=== PATIENT | female | born 1940 | race Caucasian/White ===

== ENCOUNTER → 2019-01-02 15:13 | Outpatient (CLI) | payer OTHER, SELFPAY ==
--- NOTE | 2019-01-02 | DI.MG.S_ITS ---
BILATERAL DIGITAL SCREENING MAMMOGRAM 3D/2D WITH CAD: 01/02/2019 CLINICAL: Routine screening. Comparison is made to exams dated: 12/03/2014 mammogram, 11/13/2013 mammogram, and 06/20/2008 mammogram - [facility]. The tissue of both breasts is heterogeneously dense. This may lower the sensitivity of mammography. Current study was also evaluated with a Computer Aided Detection (CAD) system. There is an oval equal density focal asymmetry with an indistinct and circumscribed margin in the left breast middle depth superior region seen on the mediolateral oblique view only. No other significant masses, calcifications, or other findings are seen in either breast. IMPRESSION: INCOMPLETE: NEEDS ADDITIONAL IMAGING EVALUATION The oval equal density focal asymmetry in the left breast is indeterminate. Mediolateral and spot compression views as well as additional views with possible ultrasound are recommended. This exam was interpreted at Station ID: [id number]. NOTE: For mammograms, a report in lay terms will be sent to the patient. Approximately 15% of breast malignancies will not be visualized mammographically. In the management of a palpable breast mass, a negative mammogram must not discourage biopsy of a clinically suspicious lesion. Electronically Signed By: Matt rogers/agapito:01/03/2019 10:39:07 letter sent: Additional Imaging Needed ACR BI-RADS Category 0: Incomplete 3340F
== END ==
PROVIDERS: Visit Provider Family Medicine
DX: Z12.31 Encounter for screening mammogram for malignant neoplasm of breast (principal)
CPT/HCPCS: 77063; 77067

== ENCOUNTER → 2019-02-12 10:22 | Outpatient (CLI) | payer OTHER, SELFPAY ==
--- NOTE | 2019-02-12 | DI.MG.S_ITS ---
UNILATERAL LEFT DIGITAL DIAGNOSTIC MAMMOGRAM 3D/2D WITH ADDITIONAL VIEWS: 02/12/2019 CLINICAL: Additional evaluation requested from prior study. Comparison is made to exams dated: 01/02/2019 mammogram, 12/03/2014 mammogram, and 11/13/2013 mammogram - [facility]. The tissue of left breast is heterogeneously dense. This may lower the sensitivity of mammography. The oval equal density focal asymmetry with an indistinct and circumscribed margin in the left breast middle depth superior region seen on the mediolateral oblique view only is not seen in additional views. No other significant masses or calcifications are seen in the breast. IMPRESSION: The focal asymmetry in the left breast seen on the screening mammogram likely respresents superimposed fibroglandular tissue and is benign. There is no mammographic evidence of malignancy. A 1 year screening mammogram is recommended. This exam was interpreted at Station ID: [id number]. NOTE: For mammograms, a report in lay terms will be sent to the patient. Approximately 15% of breast malignancies will not be visualized mammographically. In the management of a palpable breast mass, a negative mammogram must not discourage biopsy of a clinically suspicious lesion. Electronically Signed By: Ranjana jose/:02/12/2019 11:02:35 letter sent: Normal Exam ACR BI-RADS Category 2: Benign Finding(s) 3342F
== END ==
PROVIDERS: Visit Provider Family Medicine
DX: R92.8 Other abnormal and inconclusive findings on diagnostic imaging of breast (principal); N64.89 Other specified disorders of breast
CPT/HCPCS: 77065; G0279

== ENCOUNTER 2019-09-20 08:18 | Day surgery (SDC) | payer OTHER, SELFPAY ==
[2019-09-20 09:05] VITALS: BP 184/105; PULSE 80; RESP 16; TEMP 36.6; O2SAT 98; BMI 19.3
[2019-09-20] MEDS: PROPARACAINE 0.5% OPHTH SOL 2 DROPS EYE-OP (09:10)
[2019-09-20] MEDS: CATARACT EYE COMPOUND (10 DROPS/SYRINGE) 3 DROPS EYE-OP (09:15)
--- NOTE | 2019-09-20 09:57 | PM.PREOP ---
Pre-operative Note Interval Note History & Physical reviewed/Exam performed by Physician: Yes Changes to H&P: No
[2019-09-20] MEDS: BALANCED SALT IRRIG SOLN NO.2 15 ML 5 ML IRR (10:16)
[2019-09-20] MEDS: CHONDROIDTIN/SOD HYALURONATE 1.05 ML SYRINGE INTRAOCULA (10:17)
[2019-09-20] MEDS: LIDOCAINE 2% INJ SDV 2 ML INJ (10:17)
[2019-09-20] MEDS: MOXIFLOXACIN INJ 5 MG/ML VIAL EYE-OP (10:17)
[2019-09-20] MEDS: BALANCED SALT IRRIG SOLN NO.2 500 ML, EPINEPHrine 1 MG IRR (10:18)
[2019-09-20] MEDS: TETRACAINE 0.5% OPHTH DROPS 4 ML 2 DROPS EYE-OP (10:18)
[2019-09-20] MEDS: PHENYLEPHRINE/LIDOCAINE VIAL (OR) 0.2 ML EYE-OP (10:18)
--- NOTE | 2019-09-20 10:34 | PM.OP.1 ---
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 The correct patient, surgical site and lens were confirmed. 0.5 % tetracaine drops were placed in the right eye. The patient was prepped and draped in the typical sterile manner. A lid speculum was placed in the eye. 2% lidocaine was placed on the eye. A paracentesis port was created with a side-port blade. 0.1 mL of 1% preservative free lidocaine with phenylephrine was injected into the anterior chamber. Viscoelastic was injected into the anterior chamber. A 2.6mm keratome was used to create a clear corneal temporal incision. Cystotome and Utrata forceps were used to create a continuous curvilinear capsulorrhexis. Balanced salt solution was used to hydrodissect the nucleus. Phacoemulsification was used to remove the lens. The capsular bag was inflated with viscoelastic. A Gonzalez ZCBOO +19.5D lens was inserted into the capsule. Viscoelastic was removed and the wound hydrated. The wound was found to be leak free and the eye was assessed to be at normal physiologic pressure. 0.1mL Vigamox was injected into the anterior chamber. The lid speculum was removed and the patient left the operating room in excellent condition. Complications: none Post-operative Condition: stable Disposition: same day surgery
[2019-09-20 10:38] VITALS: BP 168/106; PULSE 86; RESP 20; TEMP 36.4; O2SAT 98
== END 2019-09-20 10:55 | disposition home or self-care (01) ==
LOC: OR 08:20
PROVIDERS: Visit Provider Ophthalmology
PROC: (CPT 66984; principal; 2019-09-20 09:30)
DX: H25.11 Age-related nuclear cataract, right eye (principal)
CPT/HCPCS: 66984; J0171; J2250

== ENCOUNTER 2019-10-04 12:26 | Day surgery (SDC) | payer OTHER, SELFPAY ==
[2019-10-04 12:56] VITALS: BP 195/114; PULSE 90; RESP 16; TEMP 36.9; O2SAT 99; BMI 19.4
[2019-10-04] MEDS: PROPARACAINE 0.5% OPHTH SOL 2 DROPS EYE-OP (13:00)
[2019-10-04] MEDS: CATARACT EYE COMPOUND (10 DROPS/SYRINGE) 3 DROPS EYE-OP (13:04)
--- NOTE | 2019-10-04 13:52 | PM.PREOP ---
Pre-operative Note Interval Note History & Physical reviewed/Exam performed by Physician: Yes Changes to H&P: No
[2019-10-04] MEDS: CHONDROIDTIN/SOD HYALURONATE 1.05 ML SYRINGE INTRAOCULA (14:09)
[2019-10-04] MEDS: PHENYLEPHRINE/LIDOCAINE VIAL (OR) 0.2 ML EYE-OP (14:09)
[2019-10-04] MEDS: LIDOCAINE 2% INJ SDV 2 ML INJ (14:10)
[2019-10-04] MEDS: BALANCED SALT IRRIG SOLN NO.2 500 ML, EPINEPHrine 1 MG IRR (14:10)
[2019-10-04] MEDS: MOXIFLOXACIN INJ 5 MG/ML VIAL EYE-OP (14:10)
[2019-10-04] MEDS: BALANCED SALT IRRIG SOLN NO.2 15 ML 5 ML IRR (14:11)
[2019-10-04] MEDS: TETRACAINE 0.5% OPHTH DROPS 4 ML 2 DROPS EYE-OP (14:11)
--- NOTE | 2019-10-04 14:30 | P.OP_ITS ---
Procedure & Clinicians Procedure: Cataract extraction with intraocular lens implant, left. Same procedure as scheduled: Yes Indications: Visually significant age related nuclear sclerosis, left Surgeon: Sujit Nicole Click Yes if Unassisted: Yes Anesthesia Type: MAC +/- Operative Notes Procedure in detail: The patient was brought to the operating suite. The correct patient, surgical site and lens were confirmed. 0.5 % tetracaine drops were placed in the left eye. The patient was prepped and draped in the typical flavio rile manner. A lid speculum was placed in the eye. 2% lidocaine was placed on the eye. A paracentesis port was created with a side-port blade. 0.1 mL of 1% preservative free lidocaine with phenylephrine was injected into the anterior chamber. Viscoelastic was injected into the anterior chamber. A 2.6mm keratome was used to create a clear corneal temporal incision. Cystotome and Utrata forceps were used to create a continuous curvilinear capsulorrhexis. Balanced salt solution was used to hydrodissect the nucleus. Phacoemulsification was used to remove the lens. The capsular bag was inflated with viscoelastic. A Gonzalez ZCBOO +19.5D lens was inserted into the capsule. Viscoelastic was removed and the wound hydrated. The wound was found to be leak free and the eye was assessed to be at normal physiologic pressure. 0.1mL Vigamox was injected into the anterior chamber. The lid speculum was removed and the patient left the operating room in excellent condition. Complications: none Post-operative Condition: stable Disposition: same day surgery
[2019-10-04 14:34] VITALS: BP 185/102; PULSE 85; RESP 16; TEMP 36.6; O2SAT 100
== END 2019-10-04 14:49 | disposition home or self-care (01) ==
LOC: OR 12:29
PROVIDERS: PCP Family Medicine; Visit Provider Ophthalmology
PROC: (CPT 66984; principal; 2019-10-04 14:00)
DX: H25.12 Age-related nuclear cataract, left eye (principal)
CPT/HCPCS: 66984; J0171; J2250

== ENCOUNTER → 2020-07-01 10:55 | Outpatient (CLI) | payer OTHER, SELFPAY ==
--- NOTE | 2020-07-01 11:13 | DI.MG.S_ITS ---
Patient Name: ZAINAB RODRIGUEZ date: 1940 Sex: F Attending Physician: Josh Indications: Date: 07/01/2020 11:07 At the request of: SAMEER MICHEL Procedure: MM screening mammo BI BILATERAL DIGITAL SCREENING MAMMOGRAM 3D/2D WITH CAD: 07/01/2020 CLINICAL: Routine screening. Comparison is made to exams dated: 02/12/2019 mammogram, 01/02/2019 mammogram, 12/03/2014 mammogram, and 11/13/2013 mammogram - [facility]. The tissue of both breasts is heterogeneously dense. This may lower the sensitivity of mammography. Current study was also evaluated with a Computer Aided Detection (CAD) system. There are benign calcifications in both breasts. No significant masses, calcifications, or other findings are seen in either breast. There has been no significant interval change. IMPRESSION: BENIGN There is no mammographic evidence of malignancy. A 1 year screening mammogram is recommended. This exam was interpreted at Station ID: [id number]. NOTE: For mammograms, a report in lay terms will be sent to the patient. Approximately 15% of breast malignancies will not be visualized mammographically. In the management of a palpable breast mass, a negative mammogram must not discourage biopsy of a clinically suspicious lesion. Electronically Signed By: Ranjana jose/agapito:07/01/2020 11:59:29 letter sent: Normal Exam ACR BI-RADS Category 2: Benign Finding(s) 3342F
== END ==
PROVIDERS: PCP Family Medicine; Referring Provider Family Medicine; Visit Provider Family Medicine
DX: Z12.31 Encounter for screening mammogram for malignant neoplasm of breast (principal)
CPT/HCPCS: 77063; 77067

== ENCOUNTER → 2021-02-25 13:42 | Outpatient (CLI) | payer OTHER, SELFPAY ==
[2021-02-25 15:09] LABS: COVID19 -Nasal RAPID Negative (Negative)
== END ==
PROVIDERS: PCP Family Medicine; Visit Provider Student in an Organized Health Care Education/Training Program
DX: Z01.812 Encounter for preprocedural laboratory examination (principal); Z20.822 Contact with and (suspected) exposure to COVID-19
CPT/HCPCS: 87635; C9803

== ENCOUNTER 2021-02-27 11:50 | Day surgery (SDC) | payer OTHER, SELFPAY ==
--- NOTE | 2021-02-27 11:27 | PM.HP.1 ---
History of Present Illness History of Present Illness Date Patient Seen: 02/27/21 Chief complaint: SDC Narrative: 80 Years Old Female seen today for consideration of a diagnostic colonoscopy. She has been having rectal bleeding, chronic history of hemorrhoids and constipation. Otherwise, denies lower GI symptoms suggesting disease such as change in bowel habits, abdominal pain or anemia. She has never had a colonoscopy. There's been no family history of colon cancer or colon polyps. Overall health issues have been stable, including no major cardiac events for at least 6 weeks. Past Medical History: Dermatology: Eczema and recurrent zoster 01/04 and 08/07 Musculoskeletal:Chronic Pain: affecting the low back GYNECOLOGICAL HISTORY:Menopause at age 52. Elevated TSH Whitecoat syndrome Past Surgical History: Tonsillectomy/Adenoidectomy Tubal Ligation Family History: Positive for Coronary Artery Disease ( mother -- w/CABG ). 80's, Positive for Gastric cancer: Mat. GF. Positive for Rheumatoid Arthritis ( father ). valve replacement for rheumatic disease. 84 brother [place] 62. 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 Patient History Family & Social History Social History: household members none Meds Home Medications and Allergies Home Medications Medication Instructions Recorded Confirmed Type aspirin 81 mg PO DAILY 10/04/19 10/04/19 History coenzyme Q10 [CoQ-10] 30 mg PO DAILY 10/04/19 10/04/19 History naproxen sodium [Aleve] 220 mg PO BID PRN 10/04/19 10/04/19 History polyethylene glycol 3350 [Miralax] 17 g PO DAILY PRN 10/04/19 10/04/19 History Allergies Allergy/AdvReac Type Severity Reaction Status Date / Time Penicillins Allergy Verified 10/04/19 12:52 codeine AdvReac Intermediate Verified 10/04/19 12:52 Review of Systems Review of Systems ROS: Yes All systems reviewed with the patient and are negative except as otherwise documented Exam Narrative Exam Narrative: GENERAL: Alert and oriented, appearing stated age and in no acute distress. HEENT: Head normocephalic/atraumatic. Pupils equal, round, and reactive to light and accomodation. Extraocular muscles intact. Tympanic membranes clear. Nasal mucosa moist, septum midline. Oral mucosa moist, no lesions. Neck soft and supple, no lymphadenopathy. LUNGS: Clear to ausculation bilaterally, no wheezes, rhonchi or rales. CV: Normal S1 and S2 with regular rate and rhythm, no audible murmurs, rubs or gallops. ABDOMEN: Soft, non-tender, non-distended, no organomegaly. Positive bowel sounds. EXTREMITIES: No clubbing, cyanosis, or edema. NEURO: Cranial nerves II through XII grossly intact, no focal deficits. PSYCH: Alert and oriented x 3. SKIN: No concerning lesions. Assessment & Plan Assessment & Plan narrative: 1. Hematochezia 2. Hemorrhoids 3. Constipation 4. Screening for colon cancer Plan for colonoscopy. The nature and character of the procedure as well as anticipated results were discussed. The possibility of not completing the procedure was also discussed. Possible complications including aspiration pneumonia, bleeding, perforation and reaction to medications either for sedation or preparation and missed lesions were discussed. Questions were answered and proceeding to the colonoscopy was elected. Informed consent signed. I sincerely appreciate the referral allowing me to participate in this patient's care. Please contact me with any questions or concerns.
--- NOTE | 2021-02-27 11:29 | PM.OP.ENDO ---
Operative Date/Time/Diagnoses Date of procedure: 02/27/21 Procedure Notes Procedure in detail: ENDOSCOPIST: Autumn Grant MD Sedation RN: Sedation start time: Sedation end time: PROCEDURE: Colonoscopy [] INDICATIONS: 1. Hematochezia 2. Hemorrhoids 3. Constipation 4. Colon cancer screening MEDICATION: Levsin 0.125 mg sublingual, incremental doses of Versed and fentanyl until appropriate level sedation achieved. ASA CLASS: 2 CECAL WITHDRAWAL TIME: [] COMPLICATIONS: None. EXTENT OF PROCEDURE: Cecum. QUALITY OF PREP: []Good with portions of liquid stool. PROCEDURE: Prior to insertion of the colonoscope, a digital rectal examination was accomplished with circumferential palpation of the distal rectal mucosa without significant findings being noted.[] The high-definition [] colonoscope was passed into the rectum in the usual fashion and advanced over to the cecum without difficulty. The ileocecal valve, appendiceal stoma, and medial wall all could be inspected and []no abnormalities were seen. ASCENDING COLON: J maneuver was produced in the cecum and the proximal folds of the ascending colon were carefully inspected to the hepatic flexure and []. As the colonoscope was withdrawn, care was taken to expose and inspect the haustral folds and no abnormalities were seen. [] HEPATIC FLEXURE: Normal no polyps, diverticula or other abnormalities. [] TRANSVERSE COLON: Normal no polyps, diverticula or other abnormalities. [] DESCENDING COLON: Normal no polyps, diverticula or other abnormalities. [] SIGMOID COLON: Normal no polyps, diverticula or other abnormalities. [] RECTUM: Normal. J maneuver was produced. There was no significant perianal disease. The J maneuver was broken. The remainder of the rectum was inspected and there was [] no external hemorrhoid disease. The scope was withdrawn. IMPRESSION: 1. [] PLAN: 1. [] The possibility of a missed lesion including a malignancy has been discussed with the patient previously. Potential alarm symptoms have been discussed and should be reported immediately.
== END 2021-02-27 11:55 | disposition home or self-care (01) ==
LOC: ENDO 11:52
PROVIDERS: PCP Family Medicine; Referring Provider Student in an Organized Health Care Education/Training Program; Visit Provider Student in an Organized Health Care Education/Training Program
DX: Z53.09 Procedure and treatment not carried out because of other contraindication (principal)

== ENCOUNTER → 2021-05-06 11:08 | Outpatient (CLI) | payer OTHER, SELFPAY ==
[2021-05-06 12:50] LABS: COVID19 -Nasal RAPID Negative (Negative)
== END ==
PROVIDERS: PCP Family Medicine; Visit Provider Physician Assistant
DX: Z01.812 Encounter for preprocedural laboratory examination (principal); Z20.822 Contact with and (suspected) exposure to COVID-19
CPT/HCPCS: 87635; C9803

== ENCOUNTER 2021-05-08 12:00 | Day surgery (SDC) | payer OTHER, SELFPAY ==
--- NOTE | 2021-05-08 | PATH_ITS ---
[facility] [place] Accession Number: [id number] . 01 Material submitted: . cecum - CECAL POLYP 1MM . 02 Diagnosis: Cecal Polyp, 1 mm, Biopsy: Tubular adenoma. [facility] 05/12/2021 1508 Local . 02 Electronically signed: . Giles Bernard MD, PhD, Pathologist NPI- [id number] . 01 Gross description: . CECAL POLYP 1MM: Received in formalin is 1 fragment(s) of rao, soft tissue measuring 0.6 x 0.3 x 0.2 cm submitted entirely in 1 cassette(s) /SOCO 05/09/2021 0551 Local . 02 Pathologist provided ICD-10: D12.0 . 02 CPT . 526397 Performed at: [address] [facility] [address] [place] [address], [place], [place] [id number] MD Matt Ozuna MD Phone: [phone] Performed at: 02 [facility] [address] [place], [place] [id number] MD Eve Kumari MD Phone: [phone]
--- NOTE | 2021-05-08 11:58 | P.HP_ITS ---
History of Present Illness History of Present Illness Date Patient Seen: 05/08/21 Chief complaint: [facility] Narrative: 79 Years Old Female seen today for consideration of a diagnostic colonoscopy. She has been having rectal bleeding, chronic history of hemorrhoids and constipation. Otherwise, denies lower GI symptoms suggesting disease such as change in bowel habits, abdominal pain or anemia. She has never had a colonoscopy. There's been no family history of colon cancer or colon polyps. Overall health issues have been stable, including no major cardiac events for at least 6 weeks. Past Medical History: Dermatology: Eczema and recurrent zoster 01/04 and 08/07 Musculoskeletal:Chronic Pain: affecting the low back GYNECOLOGICAL HISTORY:Menopause at age 52. Elevated TSH Whitecoat syndrome Past Surgical History: Tonsillectomy/Adenoidectomy Tubal Ligation Family History: Positive for Coronary Artery Disease ( mother -- w/CABG ). 80's, Positive for Gastric cancer: Mat. GF. Positive for Rheumatoid Arthritis ( father ). valve replacement for rheumatic disease. 84 brother [place] 62. 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 Patient History Family & Social History Social History: household members none Meds Home Medications and Allergies Home Medications Medication Instructions Recorded Confirmed Type coenzyme Q10 30 mg capsule (CoQ-10) 30 mg PO DAILY 10/04/19 05/08/21 History Allergies Allergy/AdvReac Type Severity Reaction Status Date / Time Penicillins Allergy Verified 05/08/21 12:43 codeine AdvReac Intermediate Verified 05/08/21 12:43 Review of Systems Review of Systems Narrative: Ten point review systems completed and found to be noncontributory except for items mentioned in HPI. Exam Narrative Exam Narrative: GENERAL: Alert and oriented, appearing stated age and in no acute distress. HEENT: Head normocephalic/atraumatic. LUNGS: Clear to ausculation bilaterally, no wheezes, rhonchi or rales. CV: Normal S1 and S2 with regular rate and rhythm, no audible murmurs, rubs or gallops. ABDOMEN: Soft, non-tender, non-distended, no organomegaly. Positive bowel sounds. EXTREMITIES: No clubbing, cyanosis, or edema. NEURO: Cranial nerves II through XII grossly intact, no focal deficits. PSYCH: Alert and oriented x 3. SKIN: No concerning lesions. Assessment & Plan Assessment & Plan narrative: 1. Hematochezia 2. Hemorrhoids 3. Constipation 4. Screening for colon cancer Plan for colonoscopy. The nature and character of the procedure as well as anticipated results were discussed. The possibility of not completing the procedure was also discussed. Possible complications including aspiration pneumonia, bleeding, perforation and reaction to medications either for sedation or preparation and missed lesions were discussed. Questions were answered and proceeding to the colonoscopy was elected. Informed consent signed. I sincerely appreciate the referral allowing me to participate in this patient's care. Please contact me with any questions or concerns.
--- NOTE | 2021-05-08 12:01 | PM.OP.ENDO ---
Operative Date/Time/Diagnoses Date of procedure: 05/08/21 Procedure Notes SCOAP/Timeout: 1:09 p.m. Procedure in detail: ENDOSCOPIST: Autumn Grant MD Sedation RN: Malcolm Barry RN Sedation start time: 1:10 p.m. Sedation end time: 3:31 p.m. PROCEDURE: Colonoscopy with biopsy, cold INDICATIONS: 1. Hematochezia 2. Hemorrhoids 3. Constipation 4. Screening for colon cancer MEDICATION: Levsin 0.125 mg sublingual, incremental doses of Versed and fentanyl until appropriate level sedation achieved. ASA CLASS: 2 CECAL WITHDRAWAL TIME: 7 minutes COMPLICATIONS: None. EXTENT OF PROCEDURE: Cecum. QUALITY OF PREP: Good with portions of liquid stool. PROCEDURE: Prior to insertion of the colonoscope, a digital rectal examination was accomplished with circumferential palpation of the distal rectal mucosa without significant findings being noted. The high-definition pediatric colonoscope was passed into the rectum in the usual fashion and advanced over to the cecum without difficulty. The ileocecal valve, appendiceal stoma, and medial wall all could be inspected and a 1 mm polyp was seen and removed with cold biopsy forceps. ASCENDING COLON: As the colonoscope was withdrawn, melanosis coli was noted throughout withdrawal. Care was taken to expose and inspect the haustral folds and no abnormalities were seen. HEPATIC FLEXURE: Normal, no polyps, diverticula or other abnormalities. TRANSVERSE COLON: Normal, no polyps, diverticula or other abnormalities. DESCENDING COLON: Normal, no polyps, diverticula or other abnormalities. SIGMOID COLON: Normal, no polyps, diverticula or other abnormalities. RECTUM: Normal. J maneuver was produced. There was no significant perianal disease. The J maneuver was broken. The remainder of the rectum was inspected and there was minor external hemorrhoid disease. The scope was withdrawn. IMPRESSION: 1. Cecal polyp x1, 1 mm, removed with cold biopsy forceps 2. External hemorrhoids, minor PLAN: 1. Follow-up in clinic status post pathology results. The possibility of a missed lesion including a malignancy has been discussed with the patient previously. Potential alarm symptoms have been discussed and should be reported immediately.
[2021-05-08] MEDS: LACTATED RINGERS 1,000 ML 200 ML IV (12:42)
[2021-05-08 12:45] VITALS: BP 176/96; PULSE 97; RESP 16; TEMP 36.9; O2SAT 100; BMI 19.3
[2021-05-08] MEDS: HYOSCYAMINE 0.125 MG TABLET PO ×2 (12:54)
[2021-05-08] MEDS: MIDAZOLAM 5 MG/5 ML VIAL IV (13:36)
[2021-05-08] MEDS: fentaNYL 250 MCG/5 ML INJ IV (13:37)
[2021-05-08 13:38] VITALS: BP 101/64; PULSE 72; RESP 12; TEMP 36.3; O2SAT 98
[2021-05-08 13:43] VITALS: BP 97/59; PULSE 81; RESP 16; O2SAT 98
[2021-05-08 13:48] VITALS: BP 121/79; PULSE 81; O2SAT 12
[2021-05-08 13:52] VITALS: BP 122/79; PULSE 97; RESP 18; TEMP 37; O2SAT 97
[2021-05-08 13:53] VITALS: BP 125/88; PULSE 72; RESP 14; TEMP 37; O2SAT 96
== END 2021-05-08 14:12 | disposition home or self-care (01) ==
PROVIDERS: PCP Family Medicine; Referring Provider Student in an Organized Health Care Education/Training Program; Visit Provider Student in an Organized Health Care Education/Training Program
PROC: 0DJD8ZZ Inspection of Lower Intestinal Tract, Via Natural or Artificial Opening Endoscopic (ICD-10-PCS; CPT 45378; principal; 2021-05-08 13:00)
DX: K64.8 Other hemorrhoids (principal); K59.00 Constipation, unspecified; K64.4 Residual hemorrhoidal skin tags; D12.0 Benign neoplasm of cecum
CPT/HCPCS: 45380; J2250; J3010

== ENCOUNTER → 2021-07-21 11:39 | Outpatient (CLI) | payer OTHER, SELFPAY ==
--- NOTE | 2021-07-21 | DI.MG.S_ITS ---
BILATERAL DIGITAL SCREENING MAMMOGRAM 3D/2D WITH CAD: 07/21/2021 CLINICAL: Routine screening. Comparison is made to exams dated: 07/01/2020 mammogram, 02/12/2019 mammogram, 01/02/2019 mammogram, and 12/03/2014 mammogram - [facility]. The tissue of both breasts is heterogeneously dense. This may lower the sensitivity of mammography. Current study was also evaluated with a Computer Aided Detection (CAD) system. There are benign calcifications in both breasts. No significant masses, calcifications, or other findings are seen in either breast. There has been no significant interval change. IMPRESSION: BENIGN There is no mammographic evidence of malignancy. A 1 year screening mammogram is recommended. This exam was interpreted at Station ID: [id number]. NOTE: For mammograms, a report in lay terms will be sent to the patient. Approximately 15% of breast malignancies will not be visualized mammographically. In the management of a palpable breast mass, a negative mammogram must not discourage biopsy of a clinically suspicious lesion. Electronically Signed By: Sebas Thompson M.D., jr/agapito:07/21/2021 12:11:25 letter sent: Normal Exam ACR BI-RADS Category 2: Benign Finding(s) 3342F
== END ==
PROVIDERS: PCP Family Medicine; Referring Provider Family Medicine; Visit Provider Family Medicine
DX: Z12.31 Encounter for screening mammogram for malignant neoplasm of breast (principal)
CPT/HCPCS: 77063; 77067

== ENCOUNTER → 2022-07-26 09:55 | Outpatient (CLI) | payer OTHER, SELFPAY ==
--- NOTE | 2022-07-26 | DI.ECHO.S_ITS ---
[place] [facility] +---------+ : : [address] : [address] : : : : [phone] : : : : Phone: [phone]+ Echocardiogram Report + + :Name: ZAINAB RODRIGUEZ Study Date: 07/26/2022 Height: 66 in : :[facility] ReadingLocation: Weight: 120 lb : : Gender: Female BSA: 1.6 m2 : :: 1940 Age: 81 yrs BP: 183/104 mmHg: :Reason For Study: Murmur : :Ordering Physician: MARILU, : :SAMEER Performed By: Levy Corona : :Referring: SAMEER MICHEL : + + Interpretation Summary The ejection fraction is estimated to be 55-60%. There is mild mitral regurgitation. There is mild to moderate tricuspid regurgitation. The right ventricular systolic pressure is estimated to be at least 29 mmHg based on an estimated right atrial pressure of 3 mm Hg. Procedure: A two-dimensional transthoracic echocardiogram with color flow and Doppler was performed. The study quality was technically adequate. There is no prior echocardiogram noted for this patient. Left Ventricle: The left ventricle is normal in size and wall thickness. Left ventricular systolic function is normal. The ejection fraction is estimated to be 55-60%. There are no focal wall motion abnormalities. Diastolic parameters suggest probable normal left ventricular diastolic function and normal filling pressures. Right Ventricle: The right ventricle is normal in size and function. Atria: Both atria are normal in size. The interatrial septum grossly appears intact with no obvious evidence for an atrial septal defect. Mitral Valve: There is mild mitral annular calcification. There is mild mitral regurgitation. Aortic Valve: The aortic valve is moderately calcified. There is no hemodynamically significant valvular aortic stenosis. No aortic regurgitation is present. Tricuspid Valve: The tricuspid valve is normal in structure and function. There is mild to moderate tricuspid regurgitation. The right ventricular systolic pressure is estimated to be at least 29 mmHg based on an estimated right atrial pressure of 3 mm Hg. Pulmonic Valve: The pulmonic valve is not well seen, but is grossly normal. There is no pulmonic valvular regurgitation. Great Vessels: The aortic root is normal size. The dimensions of the ascending aorta are normal. The IVC is of normal diameter and collapses greater than 50% with a sniff. This suggests a low right atrial pressure of 3 mm Hg. Pericardium/ Pleura There is no pericardial effusion. There is no pleural effusion. MMode/2D Measurements & Calculations LVIDd: 4.4 cm LVOT diam: 2.4 cm LVIDs: 2.9 cm Ao root diam: 3.1 cm FS: 34.1 % asc Aorta Diam: 3.4 cm IVSd: 0.80 cm LVPWd: 0.90 cm LV garcía. diameter/BSA (cm/m^2): 2.7 LV sys. diameter/BSA (cm/m^2): 1.8 LA dimension: 3.0 cm RA long axis: 5.3 cm LA A2 area: 14.7 cm2 LA A4 area: 20.2 cm2 LA length (vol): 4.9 cm LA vol: 51.5 ml LA vol index: 32.0 ml/m2 TAPSE_phl: 3.2 cm SOCO (plan): 1.5 cm2 Doppler Measurements & Calculations Ao V2 max: 175.0 cm/sec LVOT Max [place]: 65.3 cm/sec Ao V2 mean: 129.0 cm/sec LV V1 max P.7 mmHg Ao max P.0 mmHg LV V1 VTI: 14.7 cm Ao mean P.0 mmHg SOCO(I,D): 1.7 cm2 Ao V2 VTI: 37.4 cm SOCO(V,D): 1.6 cm2 sev ratio: 0.39 SOCO indexed to BSA (cm^2/m^2): 1.1 MV E max zelalem: 82.3 cm/sec TR max zelalem: 257.0 cm/sec MV A max z[place]: 69.4 cm/sec TR max P.4 mmHg MV E/A: 1.2 Med Peak E' Zel[place]: 10.3 cm/sec E/E' med: 8.0 Lat Peak E' [place]: 11.4 cm/sec E/E' lat: 7.2 E/e' average: 7.6 MV dec time: 0.18 sec SV(LVOT): 64.4 ml AV VR_phl: 0.37 SOCO(VTI)/BSA_phl: 0.84 MV P1/2t-pr_phl: 53.0 msec Reading Physician:03:49 PM
== END ==
PROVIDERS: PCP Family Medicine; Referring Provider Family Medicine; Visit Provider Family Medicine
DX: I08.1 Rheumatic disorders of both mitral and tricuspid valves (principal); R01.1 Cardiac murmur, unspecified
CPT/HCPCS: 93306

== ENCOUNTER → 2022-10-11 10:57 | Outpatient (CLI) | payer OTHER, SELFPAY ==
--- NOTE | 2022-10-11 | DI.MG.S_ITS ---
BILATERAL DIGITAL SCREENING MAMMOGRAM 3D/2D WITH CAD: 10/11/2022 CLINICAL: Routine screening. Comparison is made to exams dated: 07/21/2021 mammogram, 07/01/2020 mammogram, 01/02/2019 mammogram, and 12/03/2014 mammogram - [facility]. Both breasts are heterogeneously dense, which may obscure small masses (category c / 51-75% glandular tissue). Current study was also evaluated with a Computer Aided Detection (CAD) system. There are benign calcifications in both breasts. No significant masses, calcifications, or other findings are seen in either breast. There has been no significant interval change. IMPRESSION: BENIGN There is no mammographic evidence of malignancy. A 1 year screening mammogram is recommended. Based on the Tyrer Cuzick model (a risk assessment model) the patient's lifetime risk is 2.6% and her 10 year risk is 0.0%. According to the ACR, ACS, and NCCN guidelines, an annual breast MRI exam along with mammogram is recommended if the patient's lifetime risk is 20% or greater. This exam was interpreted at Station ID: [id number]. NOTE: For mammograms, a report in lay terms will be sent to the patient. Approximately 15% of breast malignancies will not be visualized mammographically. In the management of a palpable breast mass, a negative mammogram must not discourage biopsy of a clinically suspicious lesion. Electronically Signed By: Kp shane/agapito:10/11/2022 12:27:13 letter sent: Normal Exam ACR BI-RADS Category 2: Benign Finding(s) 3342F
== END ==
PROVIDERS: PCP Family Medicine; Referring Provider Family Medicine; Visit Provider Family Medicine
DX: Z12.31 Encounter for screening mammogram for malignant neoplasm of breast (principal)
CPT/HCPCS: 77063; 77067

== ENCOUNTER → 2022-11-03 10:28 | Outpatient (CLI) | payer OTHER, SELFPAY ==
--- NOTE | 2022-11-03 | DI.RAD.S_ITS ---
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 COMPARISON: None. FINDINGS: Bones: No fractures or dislocations. Carpal bones are normally aligned. Moderate to severe osteoarthritic changes are seen throughout right hand and wrist joints most notably at 1st CMC joint and 2nd MCP joints with significant joint space narrowing, extensive subchondral sclerosis and prominent marginal osteophyte formation. Subtle radiolucencies involving ulnar aspect of 4th proximal phalangeal head and adjacent 4th middle phalangeal base is seen. No suspicious bony lesions. Soft tissues: No suspicious soft tissue calcifications. Significant soft tissue swelling surrounding 4th PIP joint is seen. 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 No acute fracture or dislocation. Soft tissue swelling surrounding 4th PIP joint. Subtle radiolucency involving ulnar aspect of 4th PIP joint concerning for erosion possibly secondary to inflammatory arthropathy. Clinical correlation is recommended. Dictated by: Kingston Delarosa M.D. on 11/03/2022 at 12:08 Approved by: Kingston Delarosa M.D. on 11/03/2022 at 12:09
== END ==
PROVIDERS: PCP Family Medicine; Referring Provider Family Medicine; Visit Provider Registered Nurse
DX: M18.11 Unilateral primary osteoarthritis of first carpometacarpal joint, right hand (principal); M19.041 Primary osteoarthritis, right hand; M19.031 Primary osteoarthritis, right wrist
CPT/HCPCS: 73130

== ENCOUNTER → 2023-12-05 09:44 | Outpatient (CLI) | payer OTHER, SELFPAY ==
--- NOTE | 2023-12-05 09:46 | DI.RAD.S_ITS ---
Bone Density Report Name: ZAINAB RODRIGUEZ Age: 83 Sex: Female Ethnicity: White Date of : 1940 Indication: postmenopausal; screening for osteoporosis; Referring Provider: Julianne MICHEL M.D. Study: Bone densitometry was performed. Exam Date: December 05, 2023 Accession number: [id number] Bone Density: Region BMD T-score Z-score Classification AP Spine(L1, L2, L4) 1.279 2.2 4.9 Normal Femoral Neck (Left) 0.828 -0.2 2.2 Normal Total Hip (Left) 0.981 0.3 2.4 Normal Femoral Neck (Right) 0.825 -0.2 2.1 Normal Total Hip (Right) 0.961 0.2 2.3 Normal Total Hip Mean 0.971 0.3 2.4 Normal World Health Organization criteria for BMD impression classify patients as: Normal (T-score at or above -1.0), Osteopenia (T-score between -1.0 and -2.5), or Osteoporosis (T-score at or below -2.5). 10-year Fracture Risk: FRAX not reported because: All T-scores for Spine Total, Hip Total, Femoral Neck at or above -1.0 Impression: The patient has normal bone mass. Discussion: LOW RISK OF FRACTURE; BONE DENSITY IS WELL ABOVE THE MINIMUM DESIRABLE LEVEL AND ABOVE AVERAGE FOR AGE AND SEX AT ALL SKELETAL SITES TESTED. This person's bone density is above expected limits for age and sex. This is rarely clinically significant, but should be pursued if there are significant musculoskeletal complaints. The patient should follow a healthful lifestyle (good nutrition with adequate calcium and vitamin D, and appropriate weight-bearing exercise). Follow-Up: Consider repeating this study in 5 years or sooner if there is some new clinical indication. Reported by: JASON GIANG M.D. on 12/05/2023 10:16:00 AM.
== END ==
LOC: RAD 09:44
PROVIDERS: PCP Family Medicine; Referring Provider Family Medicine; Visit Provider Family Medicine
DX: Z78.0 Asymptomatic menopausal state (principal); Z13.820 Encounter for screening for osteoporosis
CPT/HCPCS: 77080

== ENCOUNTER 2024-01-16 08:57 | Day surgery (SDC) | payer OTHER, SELFPAY ==
[2024-01-16 09:37] VITALS: BMI 19.3
[2024-01-16 09:42] VITALS: BP 178/90; PULSE 94; RESP 16; TEMP 36.7; O2SAT 98
[2024-01-16] MEDS: LACTATED RINGERS 1,000 ML 21 ML IV (09:52)
--- NOTE | 2024-01-16 10:24 | PM.GYNHP.1 ---
History of Present Illness History of Present Illness Narrative: Lidia Willis is a 83 year old female 1 para 1 who presents for excision of a left vaginal mass. This is getting in the way of urinating. [facility] Medical History (Updated 01/11/24 @ 14:30 by Jolie Griffin RN) Vaginal mass (12/2023) Hemorrhoids Surgical History (Updated 01/11/24 @ 14:29 by Jolie Griffin RN) History of tonsillectomy and adenoidectomy Hx of tubal ligation Hx of bilateral cataract extraction (2018) Hx of colonoscopy (2020) Social History household members: none Smoking Status: Never smoker alcohol intake: current Meds Home Medications and Allergies Home Medications Medication Instructions Recorded Confirmed Type Lactobacillus acidophilus 10 10,000 mmu cells PO DAILY 01/16/24 01/16/24 History billion cell capsule (Probiotic) acetaminophen 650 mg 1,300 mg PO Q12H 01/16/24 01/16/24 History tablet,extended release biotin 5,000 mcg sublingual tablet 5,000 mcg sublingual DAILY 01/16/24 01/16/24 History calcium carbonate 600 mg-vitamin 1 tab PO DAILY 01/16/24 01/16/24 History D3 20 mcg (800 unit) chewable tablet (Caltrate 600 plus D) cholecalciferol (vitamin D3) 125 125 mcg PO DAILY 01/16/24 01/16/24 History mcg (5,000 unit) tablet (Vitamin D3) famotidine-Ca carb-mag hydrox 10 1 tab PO DAILY PRN Acid Reflux 01/16/24 01/16/24 History mg-800 mg-165 mg chewable tablet (Pepcid Complete) krill 1,000 mg-omega-3 170 mg-dha 1 cap PO BID 01/16/24 01/16/24 History 50 mg-epa 80 [id number] capsule (krill oil) polyethylene glycol 3350 17 gram 17 g PO DAILY 01/16/24 01/16/24 History oral powder packet (Miralax) red yeast rice 600 mg capsule 1,200 mg PO DAILY 01/16/24 01/16/24 History vitamin B complex 2 cap PO DAILY 01/16/24 01/16/24 History vitamin B12 2,500 mcg-folic acid 1 tab PO DAILY 01/16/24 01/16/24 History 400 mcg disintegrating tablet Allergies Allergy/AdvReac Type Severity Reaction Status Date / Time Penicillins Allergy Hives Verified 01/16/24 09:35 codeine AdvReac Intermediate Headache Verified 01/16/24 09:35 Exam Vital Signs (past 8 hours): - 01/16/24 09:42 Temperature 98.0 F Pulse Rate 94 H Respiratory Rate 16 Blood Pressure 178/90 H Pulse Oximetry 98 Oxygen Delivery Method Room Air Oxygen Delivery Method Room Air Narrative Exam Narrative: HEENT: No thyromegaly, no anterior cervical or supraclavicular lymphadenopathy. Lungs:Clear to auscultation bilaterally, no wheezes. Cardiovascular: Regular rate and rhythm, no murmurs, rubs, or gallops. Abdomen: Well-healed scars. No hepatosplenomegaly. No masses palpable. External genitalia: Normal Vagina: On the left side just behind the introitus there is a 2.5 cm x 2 cm mass originating from the left vaginal wall, extending to in front of the urethra. Extremities: No edema Assessment & Plan Assessment & Plan narrative: Assessment: 83-year-old 1 para 1 with a left vaginal wall mass obstructing the urethra Plan: Excision of left vaginal wall mass The risks, benefits, and alternatives to the procedure were explained to the patient. The risks including bleeding and infection. She understands these risks and agrees to proceed. A full par Q was held and consent form was signed. Time Spent With Patient Time with patient: less than 30 minutes
--- NOTE | 2024-01-16 10:26 | PM.PREOP ---
Pre-operative Note Interval Note History & Physical reviewed/Exam performed by Physician: Yes Changes to H&P: No H&P completed within 30 days and has changed as indicated here:: 01/16/24
--- NOTE | 2024-01-16 10:40 | SUR.OPER ---
Supine on padded OR bed, head on pillow, arms secured on padded arm boards at <90 degrees abduction, legs uncrossed, safety belt at thigh, tape over blanket over lower legs.
[2024-01-16 11:04] VITALS: BP 162/95; PULSE 79; RESP 16; TEMP 36.8; O2SAT 77
--- NOTE | 2024-01-16 11:08 | P.OP_ITS ---
Operative Date/Time/Diagnoses Date of procedure: 01/16/24 Time of procedure: 11:08 Pre-op diagnosis: Mass obstructing the vaginal open Post-op diagnosis: other (Urethral diverticulum) Procedure & Clinicians Procedure: Procedures Operation Date: 01/16/24 12:45 Actual Procedure Side Surgeon p Excision of Vaginal Polyp Marie De León MD Examination under anesthesia Indications: 83 year mass vagina coming from the vagina, intermittently obstructing the urethra. Surgeon: Marie De León Anesthesia Type: General Operative Notes Findings: 2 cm x 2 cm urethral diverticulum coming from approximately 1-1-1/2 cm into the urethra in the midline. No vaginal mass Closure Type: not applicable Specimen(s): none Applied: catheter (Catheter placed into the urethra to empty the bladder and further delineate the urethral diverticulum) Estimated blood loss (mL): 0 Blood products transfused: none Procedure in detail: After informed consent was obtained, the patient was taken to the operating room where she was placed in the dorsal supine position. After adequate general endotracheal anesthesia was achieved, she was placed in the dorsal lithotomy position, and prepped and draped in the usual sterile fashion. A time-out was p erformed. An examination under anesthesia was performed. The previously noted mass seen in the office was smaller and arising from the midline of the urethra, approximately 1 to 1.5 cm from the meatus. This was firm to touch. No pus appreciated. A catheter was placed into the urethra while the exam was being performed. An intraoperative consultation was obtained from Dr. Wilson, urologist, and his recommendation was to get a CT cystogram and then refer patient to him for removal/repair of the diverticulum. The catheter was removed. The patient tolerated the procedure well. Complications: none Post-operative Condition: stable Disposition: PACU Plan for aftercare: Home after recovery
[2024-01-16 11:09] VITALS: BP 155/83; PULSE 75; RESP 17; O2SAT 99
[2024-01-16 11:14] VITALS: BP 162/85; PULSE 77; RESP 14; O2SAT 100
[2024-01-16 11:23] VITALS: BP 151/93; PULSE 83; RESP 22; TEMP 36.8; O2SAT 98
== END 2024-01-16 11:45 | disposition home or self-care (01) ==
PROVIDERS: PCP Family Medicine; Referring Provider Obstetrics & Gynecology; Visit Provider Obstetrics & Gynecology
PROC: (CPT 57410; principal; 2024-01-16 12:45)
DX: N36.1 Urethral diverticulum (principal)
CPT/HCPCS: 57410; J0330; J1100; J2405; J2704; J3010

== ENCOUNTER 2024-04-04 13:31 | Emergency (ER) | payer OTHER, SELFPAY ==
[2024-04-04 13:33] VITALS: BP 197/93; PULSE 77; RESP 16; TEMP 36.9; O2SAT 98; BMI 19.3
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
[2024-04-04 14:39] VITALS: BP 158/91; PULSE 77; RESP 16; O2SAT 100
[2024-04-04] MEDS: ACETAMINOPHEN 325 MG TABLET 650 MG PO (15:55)
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
[2024-04-04 16:04] VITALS: BP 152/79; PULSE 74; RESP 18; O2SAT 100
== END 2024-04-04 16:05 | disposition home or self-care (01) ==
PROVIDERS: Emergency Provider Emergency Medicine; PCP Family Medicine
DX: S16.1XXA Strain of muscle, fascia and tendon at neck level, initial encounter (principal); V89.2XXA Person injured in unspecified motor-vehicle accident, traffic, initial encounter
CPT/HCPCS: 99282; 99283

== ENCOUNTER → 2024-05-04 08:01 | Outpatient (CLI) | payer OTHER, SELFPAY ==
--- NOTE | 2024-05-04 08:02 | DI.MRI.S_ITS ---
PROCEDURE: MR PELIS WO/W CON INDICATIONS: urethral caruncle TECHNIQUE: Coronal HASTE, sagittal T2 FSE, axial T1 FSE, axial and coronal nonbreath-hold T2 FSE. Axial dynamic VIBE during administration of contrast. Post-contrast axial and coronal VIBE/2-D FLASH with fat saturation from the iliac crests to the symphysis. Optional diffusion weighted imaging and ADC may be performed. COMPARISON: None. FINDINGS: Image quality: Excellent. Bowel and peritoneum: No pathologic free pelvic fluid. Inferior colon and small bowel loops are normal in caliber. Genitourinary system: Bladder wall is normal in thickness. Distal ureters are non distended. There is a T2 intermediate mass along the posterior margin of the urethral orifice measuring 1.1 x 0.9 cm. Gradient artifact at the vaginal orifice indicating prior surgery. Nodes and vessels: No pathologic pelvic or inguinal adenopathy by size criteria. Iliac vessels are normal in caliber. Soft tissues: No inguinal hernias. Bones: Marrow is normal in overall signal. IMPRESSION: T2 intermediate mass along the posterior margin of the urethral orifice measuring 1.1 x 0.9 cm. No pelvic adenopathy. Dictated by: Arturo Enriquez M.D. on 05/04/2024 at 10:40 Approved by: Arturo Enriquez M.D. on 05/04/2024 at 10:45
== END ==
PROVIDERS: PCP Family Medicine; Referring Provider Urology; Visit Provider Urology
DX: N36.2 Urethral caruncle (principal); N89.8 Other specified noninflammatory disorders of vagina
CPT/HCPCS: 72197; A9579

== ENCOUNTER → 2024-06-13 09:07 | Outpatient (CLI) | payer OTHER, SELFPAY ==
--- NOTE | 2024-06-13 09:08 | DI.MRI.S_ITS ---
PROCEDURE: MR HEAD/BRAIN WO/W CON INDICATIONS: SYNCOPE TECHNIQUE: Noncontrast axial T1 spin echo, axial T2 fast spin echo, sagittal and axial FLAIR, coronal T2 fast spin echo, axial gradient echo, axial diffusion and ADC through the brain. After the administration of contrast, axial and coronal and sagittal T1 spin echo with fat saturation through the brain. COMPARISON: None. FINDINGS: Image quality: Excellent. CSF spaces: Basal cisterns are patent. No extra-axial fluid collections. Ventricles are normal in size and shape for the degree of volume loss. Brain: No midline shift. No intracranial bleeds or masses. Remote microhemorrhage within the left splenium. No abnormal intracranial enhancement. Mild to moderate cerebral volume loss. T2 FLAIR signal hyperintensities within the subcortical and periventricular white matter. The brainstem appears normal. Diffusion-weighted images demonstrate no acute infarct. Remote infarct within the right colon radiata. Remote bilateral basal ganglia lacunar infarcts. Remote lacunar infarct within the right caudate. Dilated perivascular spaces. Normal intravascular flow voids are present. Skull and face: Calvarial marrow is normal in signal. Bilateral lens replacement. Sinuses: Sinuses and mastoids appear clear. Lumbar spine: The spinal canal measures approximately 1.1 centimeters in the AP dimension. Grade 1 anterolisthesis of C2 on C3 and grade 1 retrolisthesis of C4 on C5. IMPRESSION: 1. No acute infarct, hemorrhage or mass lesion. 2. Normal multifocal infarcts as described above. 3. Mild to moderate cerebral volume loss. 4. Subcortical and periventricular white matter changes. These are likely on the basis of chronic small vessel ischemic disease. 5. There is suggestion for congenital spinal canal stenosis. An MRI of the cervical spine can be obtained if there is concern for spinal cord pathology. Dictated by: Toby Damon M.D. on 06/13/2024 at 14:00 Approved by: Toby Damon M.D. on 06/13/2024 at 14:32
== END ==
LOC: MRI 09:07
PROVIDERS: PCP Family Medicine; Referring Provider Family Medicine; Visit Provider Family Medicine
DX: R55 Syncope and collapse (principal)
CPT/HCPCS: 70553; A9579

== ENCOUNTER → 2024-07-05 08:22 | Outpatient (CLI) | payer OTHER, SELFPAY | PROVIDERS: PCP Family Medicine; Referring Provider Urology; Visit Provider Urology | DX: R39.9 Unspecified symptoms and signs involving the genitourinary system (principal); N36.2 Urethral caruncle; N32.0 Bladder-neck obstruction; Z68.1 Body mass index [BMI] 19.9 or less, adult | CPT/HCPCS: 81002; 87077; 87086; 87186; 99213 ==

== ENCOUNTER → 2024-07-06 08:43 | Outpatient (CLI) | payer OTHER, SELFPAY ==
--- NOTE | 2024-07-06 08:44 | DI.ECHO.S_ITS ---
[facility] : : [address] : : [place] : : [id number] : : Phone: [phone] Echocardiogram Report + + :Name: ZAINAB RODRIGUEZ Study Date: 07/06/2024 Height: 66 in : :[facility] ReadingLocation: Weight: 112 lb : : Gender: Female BSA: 1.6 m2 : :: 1940 Age: 83 yrs BP: 149/94 mmHg: :Reason For Study: SYNCOPE : :Ordering Physician: MARILU, : :SAMEER Performed By: Ema Frost : :Referring: SAMEER MICHEL : + + Interpretation Summary Normal sinus rhythm with occasional PVCs.. Normal LV size and wall thickness. Normal wall motion and LV systolic function. Ejection fraction 60-65%. Severe left atrial enlargement; otherwise normal chamber sizes. Moderate mitral annular calcification. Moderate central tricuspid regurgitation. Aortic valve is a trileaflet structure with mildly thickened and calcified leaflets and mild associated aortic stenosis. Estimated PA systolic pressure is 41 mmHg assuming right atrial pressure of 3 mmHg. Compared to prior study July 26, 2022, mild aortic stenosis is newly described. Left atrial volume progressed from 32 mL/mA? to 51 mL/mA?. Procedure: A two-dimensional transthoracic echocardiogram with color flow and Doppler was performed. The study quality was technically adequate. Comparison is made with the echocardiogram of 07/26/2022. The patient was in sinus rhythm with heart rates between 69-80 bpm during the exam. Left Ventricle: Proximal septal thickening is noted. The left ventricle is normal in size. The ejection fraction is estimated to be 60-65%. Right Ventricle: The right ventricle is normal in size and function. Atria: The left atrium is severely dilated. Right atrial size is normal. There is no Doppler evidence for an interatrial shunt. Mitral Valve: There is mild mitral annular calcification. The mitral valve leaflets appear mildly thickened, but open well. There is mild mitral regurgitation. Aortic Valve: The aortic valve is mildly calcified. The aortic valve is trileaflet. The peak aortic velocity is 2.3 m/sec. The aortic valve mean gradient is 13 mmHg. The calculated aortic valve area is 1.0 cm2. No aortic regurgitation is present. Tricuspid Valve: The tricuspid valve is normal in structure and function. There is moderate tricuspid regurgitation. The right ventricular systolic pressure is estimated to be at least 41 mmHg based on an estimated right atrial pressure of 3 mm Hg. Pulmonic Valve: The pulmonic valve leaflets are thin and pliable; valve motion is normal. There is mild pulmonic regurgitation. Great Vessels: The aortic root is normal size. The dimensions of the ascending aorta are normal. The IVC is of normal diameter and collapses greater than 50% with a sniff. This suggests a low right atrial pressure of 3 mm Hg. Pericardium/ Pleura There is no pericardial effusion. There is no pleural effusion. MMode/2D Measurements & Calculations LVIDd: 4.6 cm LVOT diam: 2.0 cm LVIDs: 2.9 cm Ao root diam: 2.8 cm FS: 36.8 % asc Aorta Diam: 3.1 cm IVSd: 0.75 cm Ao Arch Diam (Prox Trans): 2.2 cm LVPWd: 0.76 cm LV garcía. diameter/BSA (cm/m^2): 2.9 LV sys. diameter/BSA (cm/m^2): 1.8 LA A2 area: 23.9 cm2 RA long axis: 5.6 cm LA A4 area: 18.9 cm2 RA area: 18.4 cm2 LA length (vol): 5.3 cm RA vol: 51.6 ml LA vol: 72.9 ml RA : 33.0 ml/m2 LA vol index: 46.6 ml/m2 IVC diam: 1.4 cm RVD1 (basal): 3.7 cm RVD2 (mid): 3.0 cm TAPSE: 2.3 cm Doppler Measurements & Calculations Ao V2 max: 234.3 cm/sec LVOT Max [place]: 79.6 cm/sec Ao V2 mean: 160.5 cm/sec LV V1 max P.5 mmHg Ao max P.0 mmHg LV V1 VTI: 17.0 cm Ao mean P.7 mmHg SOCO(I,D): 1.1 cm2 Ao V2 VTI: 46.3 cm SOCO(V,D): 1.0 cm2 sev ratio: 0.37 SOCO indexed to BSA (cm^2/m^2): 0.72 MV E max [place]: 67.0 cm/sec TR max [place]: 309.6 cm/sec MV A max [place]: 58.3 cm/sec TR max P.3 mmHg MV E/A: 1.1 PA V2 max: 89.7 cm/sec Med Peak E' [place]: 7.6 cm/sec PA V2 mean: 62.6 cm/sec E/E' med: 8.8 PA mean P.7 mmHg Lat Peak E' [place]: 10.6 cm/sec PA pr(Accel): 41.3 mmHg E/E' lat: 6.3 E/e' average: 7.5 MV dec time: 0.21 sec SV(ALESSANDRO): 52.0 ml Electronically signed by: Genevieve Jose M.D. on Reading Physician:07/06/2024 01:13 PM
== END ==
LOC: ECHO 08:43
PROVIDERS: PCP Family Medicine; Referring Provider Family Medicine; Visit Provider Family Medicine
DX: R55 Syncope and collapse (principal); I08.1 Rheumatic disorders of both mitral and tricuspid valves; I70.0 Atherosclerosis of aorta
CPT/HCPCS: 93306

== ENCOUNTER → 2024-08-03 10:05 | Outpatient (CLI) | payer OTHER, SELFPAY | PROVIDERS: PCP Family Medicine; Visit Provider Urology | DX: R39.9 Unspecified symptoms and signs involving the genitourinary system (principal) | CPT/HCPCS: 87086 ==

== ENCOUNTER → 2025-03-27 | Outpatient (CLI) | payer OTHER, SELFPAY ==
--- NOTE | 2025-03-27 14:46 | DI.MG.S_ITS ---
MM screening mammo BI: 03/27/2025. BI-RADS: 2 CLINICAL: 84-year old female for bilateral screening mammogram. Tyrer-Cuzick lifetime risk of 0.6%. No personal or first-degree family history of breast cancer. PRIOR EXAMS 10/11/2022, 07/21/2021, 07/01/2020, 02/12/2019, 01/02/2019. MAMMOGRAPHY TECHNIQUE: 2D and 3D (tomosynthesis) digital mammographic views obtained, with additional images as needed for full coverage. Current study was also evaluated with a Computer Aided Detection (CAD) system. DENSITY C. The breasts are heterogeneously dense, which may obscure small masses. MAMMOGRAPHY FINDINGS Bilateral: Benign-appearing calcifications noted. There are no suspicious masses, calcifications, or other findings in the breast. IMPRESSION: * No evidence of malignancy with benign findings. RECOMMENDATIONS Bilateral * Annual screening mammography. OVERALL ASSESSMENT CATEGORY BI-RADS-2: Benign. The [employer] recommends annual screening mammography beginning at age 40 for women with average risk of breast cancer. ELECTRONICALLY SIGNED: Cuate Aggarwal M.D. on 03/27/2025 at 06:35:40 PM PT Interpreting Station ID: [id number]
== END ==
PROVIDERS: PCP Family Medicine; Referring Provider Family Medicine; Visit Provider Family Medicine
DX: Z12.31 Encounter for screening mammogram for malignant neoplasm of breast (principal); R92.333 Mammographic heterogeneous density, bilateral breasts
CPT/HCPCS: 77063; 77067

== ENCOUNTER → 2025-04-10 10:53 | Outpatient (CLI) | payer OTHER, SELFPAY ==
--- NOTE | 2025-04-10 10:56 | DI.RAD.S_ITS ---
PROCEDURE: XR KNEE RT 3V INDICATIONS: KNEE PAIN TECHNIQUE: 3 views of the knee were acquired. COMPARISON: None. FINDINGS: Bones: There are no osseous abnormalities. Joints: The tibialfemoral and patellofemoral joints show mild degeneration. Small effusion noted Soft tissues: Normal IMPRESSION: Mild degeneration. Small effusion Dictated by: Cirilo Mcclure M.D. on 04/11/2025 at 12:18 Approved by: Cirilo Mcclure M.D. on 04/11/2025 at 12:18
== END ==
PROVIDERS: PCP Family Medicine; Referring Provider Family Medicine; Visit Provider Family Medicine
DX: M17.11 Unilateral primary osteoarthritis, right knee (principal); M25.461 Effusion, right knee; M25.561 Pain in right knee
CPT/HCPCS: 73562